=== PATIENT | male | born 1970 | race Caucasian/White ===

== ENCOUNTER 2017-04-07 15:01 | Emergency (ER) | payer OTHER ==
[2017-04-07 15:16] VITALS: BP 134/87
[2017-04-07] MEDS ORDERED: Gelfoam 12-7 ADSORBABL SPONGE* 1 EA SPONGE ONE (15:49)
--- NOTE | 2017-04-07 15:52 | RAD ---
INDICATION: Laceration left second digit with chain saw COMPARISON: None TECHNIQUE: AP, lateral, and oblique views were obtained. FINDINGS: There is soft tissue injury about the distal phalanx. There is no foreign body. No acute bony changes noted, however. There is a bandage in place. IMPRESSION: LACERATION DISTAL PHALANX
--- NOTE | 2017-04-07 16:04 | ED ---
Laceration/Wound HPI - HPI Summary HPI Summary: 47M presents with laceration to left index finger from table saw. the table saw hit the distal end of his finger. He states he has some numbness at the tip of his finger. He has full ROM of his finger. He is right handed. He states that he had a tetanus within the past 5 years. - History of Current Complaint Stated Complaint: FINGER LAC TABLE SAW Time Seen by Provider: 04/07/17 16:03 Pain Intensity: 5 PMH/Surg Hx/FS Hx/Imm Hx Endocrine/Hematology History: Denies: Hx Anticoagulant Therapy Respiratory History: Denies: Hx Asthma Infectious Disease History: No Infectious Disease History: Denies: Traveled Outside the [place] in Last 30 Days - Family History Known Family History: Positive: Hypertension - Social History Alcohol Use: Occasionally Substance Use Type: Reports: Marijuana Smoking Status (MU): Light Every Day Tobacco Smoker Review of Systems Negative: Fever Negative: Chest Pain Negative: Shortness Of Breath Positive: Other - laceration left index All Other Systems Reviewed And Are Negative: Yes Physical Exam Triage Information Reviewed: Yes Vital Signs On Initial Exam: Initial Vitals Temp Pulse Resp BP Pulse Ox 99.2 F 83 16 134/87 98 04/07/17 15:13 04/07/17 15:13 04/07/17 15:13 04/07/17 15:13 04/07/17 15:13 Vital Signs Reviewed: Yes Appearance: Positive: Well-Appearing Skin: Positive: Other - 1cm triangle avulsion through nail not involving nailbed of left index finger Head/Face: Positive: Normal Head/Face Inspection Eyes: Positive: Normal, Conjunctiva Clear Respiratory/Lung Sounds: Positive: Clear to Auscultation, Breath Sounds Present Cardiovascular: Positive: Normal, RRR Musculoskeletal: Positive: Strength/ROM Intact - left index finger Procedures - Laceration/Wound Repair 1 Location: Other - left index finger Description: Irregular Length, Depth and Shape: avulsion of nail and skin of left finger 1cm length by 1/2 cm wide at widest point of triangle Irrigated w/ Saline (ccs): 150 Closure: Skin Adhesive Diagnostics - Vital Signs Vital Signs Temp Pulse Resp BP Pulse Ox 04/07/17 15:37 99.2 F 83 16 134/87 98 04/07/17 15:13 99.2 F 83 16 134/87 98 - Laboratory Lab Statement: Any lab studies that have been ordered have been reviewed, and results considered in the medical decision making process. - Radiology finger Xray Interpretation: Positive (See Comments) - no fracture, soft tissue injury Radiology Interpretation Completed By: Radiologist Laceration Repair Course/Dx - Course Course Of Treatment: 47M presents with avulsion to left index finger that involves the nail and the skin due to table saw. has full ROM of finger. tetanus up to datea. no bone involvment. due to being avulsion placed surgicel on area and applied pressure dressing. patient understands and agrees with plan - Differential Dx Differental Diagnoses: Abrasion, Avulsion, Laceration - Clinical Impression Provider Diagnoses: avulsion of left index finger Discharge - Discharge Plan Condition: Good Disposition: HOME Patient Education Materials: Skin Avulsion (ED) Referrals: Katharine Yadav MD [Primary Care Provider] - Additional Instructions: Keep area in pressure dressing for 48 hours, after 48 hours check for sign of infection leaving absorbable hemostat on wound and rewrap with pressure dressing for another 24 hours Can remove absorbable hemostat in 5 days if able to by soaking it or can leave it Follow up with primary within 10 days Return to ED if develop any signs of infection such as fever, spreading redness , or pus formation or if bleed through pressure dressing or any new or worsening symptoms Images - Images Hands: 1 - triangle avulsion
== END 2017-04-07 16:17 | disposition home or self-care (01) ==
LOC: ED 15:01
DX: S61.211A Laceration without foreign body of left index finger without damage to nail, initial encounter (principal); W45.8XXA Other foreign body or object entering through skin, initial encounter; Y93.9 Activity, unspecified; Y92.9 Unspecified place or not applicable; Y99.9 Unspecified external cause status; F17.210 Nicotine dependence, cigarettes, uncomplicated
CPT/HCPCS: 73140; 99282; A9270-GY

== ENCOUNTER 2017-05-27 12:08 | Emergency (ER) | payer OTHER ==
[2017-05-27 12:56] VITALS: BP 116/83
[2017-05-27] MEDS ORDERED: Lidocaine 2% 10 ML* VIAL INJ ONE (15:10)
--- NOTE | 2017-05-27 15:10 | ED ---
Laceration/Wound HPI - HPI Summary HPI Summary: 47 y/o male presents to the urgent care c/o of laceration of his Right index about 4 hrs ago. 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 Pt reports his tetnus vaccine is upto date. Pain is 3/10, he irrigated wound and bleeding stopped. Pt denies fever, SOB, chest pain, N/V/D. Pt has no other complains. - History of Current Complaint Stated Complaint: FINGER LAC Time Seen by Provider: 05/27/17 14:43 Hx Obtained From: Patient Mechanism of Injury: Sharp/Blunt Trauma Onset/Duration: Sudden Onset, Lasting Hours, Still Present Aggravating: Nothing Alleviating: Compression Timing: Constant Onset Severity: Mild Current Severity: Mild Pain Intensity: 3 Pain Scale Used: 0-10 Numeric Associated Signs & Symptoms: Negative Related Hx: Occupational Injury - Allergy/Home Medications Allergies/Adverse Reactions: Allergies Allergy/AdvReac Type Severity Reaction Status Date / Time No Known Allergies Allergy Verified 05/27/17 12:56 Home Medications: Home Medications Citalopram TAB* [CeleXA TAB*] 40 mg PO DAILY 05/27/17 [History Confirmed ] PMH/Surg Hx/FS Hx/Imm Hx Previously Healthy: Yes Endocrine/Hematology History: Denies: Hx Anticoagulant Therapy Respiratory History: Denies: Hx Asthma Psychiatric History: Reports: Hx Depression - Surgical History Surgery Procedure, Year, and Place: rt hip replacement Infectious Disease History: No Infectious Disease History: Denies: Traveled Outside the [place] in Last 30 Days - Family History Known Family History: Positive: Hypertension, Diabetes - Social History Occupation: Employed Full-time Lives: With Family Alcohol Use: Weekly Substance Use Type: Reports: Marijuana Substance Use Comment - Amount & Last Used: sometimes Smoking Status (MU): Former Smoker Type: Cigarettes Review of Systems Constitutional: Negative Eyes: Negative ENT: Negative Cardiovascular: Negative Respiratory: Negative Gastrointestinal: Negative Genitourinary: Negative Musculoskeletal: Negative Positive: Other - Laceration at the base of the LF index Neurological: Negative Psychological: Normal All Other Systems Reviewed And Are Negative: Yes Physical Exam Triage Information Reviewed: Yes Vital Signs On Initial Exam: Initial Vitals Temp Pulse Resp BP Pulse Ox 97.8 F 44 18 116/83 100 05/27/17 12:52 05/27/17 12:52 05/27/17 12:52 05/27/17 12:52 05/27/17 12:52 Appearance: Positive: Well-Appearing, No Pain Distress, Well-Nourished Skin: Positive: Other - Linear laceration at the base of the RT #2 phalanx, no bleeding, no erythema, or tenderness on palpation. FROM of the finger. w/ positive capillary refill and sensation. Size: 4cm . Head/Face: Positive: Normal Head/Face Inspection Eyes: Positive: Normal, EOMI, NORM, Conjunctiva Clear ENT: Positive: Normal ENT inspection, Hearing grossly normal, Pharynx normal, TMs normal Neck: Positive: Supple Respiratory/Lung Sounds: Positive: Clear to Auscultation, Breath Sounds Present Cardiovascular: Positive: Normal, RRR, Pulses are Symmetrical in both Upper and Lower Extremities, S1, S2 Abdomen Description: Positive: Nontender, No Organomegaly, Soft. Negative: CVA Tenderness (R), CVA Tenderness (L) Bowel Sounds: Positive: Present Musculoskeletal: Positive: Normal, Strength/ROM Intact Neurological: Positive: Normal, Sensory/Motor Intact, Alert, Oriented to Person Place, Time, CN Intact II-III, Reflexes Intact Psychiatric: Positive: Normal Procedures - Laceration/Wound Repair 1 Location: Other - Laceration at the base of the LF #2 phalax Description: Linear Anesthesia: Local, 2.0% Betadine Prep?: Yes Irrigated w/ Saline (ccs): 100 Laceration/Wound Explored: clean Closure: Single Layer Suture Type: Nylon - monofilament 4.0 Number of Sutures: 5 Layer Closure?: No Sterile Dressing Applied?: Yes Diagnostics - Vital Signs Vital Signs Temp Pulse Resp BP Pulse Ox 05/27/17 12:52 97.8 F 44 18 116/83 100 - Laboratory Lab Statement: Any lab studies that have been ordered have been reviewed, and results considered in the medical decision making process. Laceration Repair Course/Dx - Course Course Of Treatment: 47 y/o male presents to the urgent care c/o of laceration of his left index about 4 hrs ago. Pt upto date with Tetanus vaccine. Hx obtained. PE abnormal findings:Skin: Positive: Other - Linear laceration at the base of the RT#2 phalanx, no bleeding, no erythema, or tenderness on palpation. FROM of the finger. w/ positive capillary refill and sensation. Size 4cm. LACERATION PROCEDURE NOTE: . Copious irrigation was done with saline and the wound explored. There was no FB or deep structure injury noted. The procedure was explained and consent obtained, time out was performed. The wound was anesthetized with 4mL of 2% Lidocaine with good anesthesia. Sterile drape and prep were done . There were 5 of sutures placed with 4.0 type of suture. The length of the wound after closure 4cm. No debridement done. Wound was covered with sterile nonadherent dressing. The Pt tolerated the procedure well without adverse effects. Neurovascular intact after procedure. Pt Rx bacitracin topical apply BID x 7 days. Advised to keep wound covered and avoid excess movement with finger. Advised to return for suture removal in 10 days and if redness, pain or selling develops around wound to return to the urgent care for further evaluation and treatment. Pt understood and agreed. Lidocaine 2% ordered. - Differential Dx Differental Diagnoses: Abrasion, Avulsion, Laceration, Puncture Wound - Clinical Impression Provider Diagnoses: Laceration of right index finger w/o foreign body w/o damage to nail - Physician Notifications Discussed Care Of Patient With: Alex Weiss - Dr Weiss agreed with Pt care and procedure. Discharge - Discharge Plan Condition: Stable Disposition: HOME Prescriptions: Bacitracin OINTMENT* 1 applic TOPICAL BID #1 tube Patient Education Materials: Finger Laceration (ED) Referrals: Katharine Yadav MD [Primary Care Provider] - Additional Instructions: Please keep wound covered with dressings avoid moisture, excess movement of finger. Please apply antibiotic ointment as directed. Please return for suture removal in 10 days to the urgent care or your PCP. If signs of redness, pain or swelling around wound please return to the urgent care for further evaluation and treatment.
[2017-05-27] MEDS ORDERED: Lidocaine 2% PF * 5 ML VIAL INJ ONE (15:30)
[2017-05-27] MEDS ORDERED: Lidocaine 1% MPF* 2 ML VIAL ONE (15:30)
== END 2017-05-27 16:54 | disposition home or self-care (01) ==
LOC: UCEAST 12:08
DX: S61.210A Laceration without foreign body of right index finger without damage to nail, initial encounter (principal); F32.9 Major depressive disorder, single episode, unspecified; Z87.891 Personal history of nicotine dependence; W26.8XXA Contact with other sharp object(s), not elsewhere classified, initial encounter; Y92.89 Other specified places as the place of occurrence of the external cause
CPT/HCPCS: 12002; 99212; G0463; J2001

== ENCOUNTER 2018-02-13 16:28 | Emergency (ER) | payer OTHER ==
--- NOTE | 2018-02-13 17:43 | RAD ---
HISTORY: Left calf pain and edema TECHNIQUE: Multiple transverse and longitudinal ultrasound images were obtained of the veins of the left lower extremity using grayscale, color Doppler, and spectral Doppler imaging with and without compression and with augmentation. FINDINGS: VEINS: The common femoral vein, deep femoral vein, femoral vein and popliteal vein are compressible throughout their course, with normal flow on color Doppler imaging and normal response to augmentation on spectral Doppler imaging. SOFT TISSUES: Grossly normal. No large popliteal fossa cyst was identified. IMPRESSION: No sonographic evidence of deep vein thrombosis.
[2018-02-13] MEDS ORDERED: NS 0.9% 1000 ML* 1,000 ML IV ONE (18:47)
[2018-02-13] MEDS ORDERED: Ketorolac INJ* 30 MG/ML 1 ML VIAL IV PUSH ONE (18:47)
--- NOTE | 2018-02-13 18:47 | ED ---
Lower Extremity - HPI Summary HPI Summary: Patient is an otherwise healthy 47-year-old male presenting to the ED with left knee swelling, erythema and erythematous lower extremity 4 days. He denies any known open wound or bite or other infective cause. No history of gout. No history of joint effusions or arthritis. He states he awoke 4 days ago with his anterior knee swelling with a moderate amount of fluctuance and no drainage. Immediately following the area became erythematous and warm extending to the lower extremity, ending at the ankle. There is no erythema up the thigh. He remains ambulatory and endorses worsening pain with movement and standing, although this is marginal. He has not taken anything for relief of symptoms including ibuprofen and Tylenol. He has not been on an antibiotic. He is a nonsmoker. No history of Lyme or tick bites. No history of rheumatoid arthritis or gonorrhea. - History of Current Complaint Chief Complaint: EDExtremityLower Stated Complaint: LT LEG SWELLING Time Seen by Provider: 02/13/18 18:13 Hx Obtained From: Patient Mechanism Of Injury: Unknown Onset of Pain: Immediate Onset/Duration: Days Severity Initially: Moderate Severity Currently: Moderate Pain Intensity: 3 Pain Scale Used: 0-10 Numeric Timing: Constant Character Of Pain: Aching Aggravating Factor(s): Standing, Ambulation Alleviating Factor(s): Rest Able to Bear Weight: No - Risk Factors Gout Risk Factors: Age Over 40, Male DVT Risk Factors: Negative Septic Arthritis Risk Factor: Negative - Allergies/Home Medications Allergies/Adverse Reactions: Allergies Allergy/AdvReac Type Severity Reaction Status Date / Time No Known Allergies Allergy Verified 05/27/17 12:56 PMH/Surg Hx/FS Hx/Imm Hx Previously Healthy: Yes Endocrine/Hematology History: Denies: Hx Anticoagulant Therapy Respiratory History: Denies: Hx Asthma Psychiatric History: Reports: Hx Depression - Surgical History Surgery Procedure, Year, and Place: rt hip replacement - Immunization History Hx Pertussis Vaccination: No Immunizations Up to Date: Unable to Obtain/Confirm Infectious Disease History: No Infectious Disease History: Denies: Traveled Outside the [place] in Last 30 Days - Family History Known Family History: Positive: Hypertension, Diabetes - Social History Occupation: Employed Full-time Lives: With Family Alcohol Use: Weekly Hx Substance Use: Yes Substance Use Type: Reports: Marijuana Substance Use Comment - Amount & Last Used: sometimes Smoking Status (MU): Former Smoker Type: Cigarettes Review of Systems Constitutional: Negative Negative: Fever, Chills, Fatigue, Skin Diaphoresis Negative: Palpitations, Chest Pain Negative: Shortness Of Breath, Cough Negative: Abdominal Pain Positive: no symptoms reported, see HPI Positive: Arthralgia Positive: Other - erythema and warmth to the left knee lower extremity Psychological: Normal All Other Systems Reviewed And Are Negative: Yes Physical Exam Triage Information Reviewed: Yes Vital Signs On Initial Exam: Initial Vitals Temp Pulse Resp BP Pulse Ox 98.7 F 78 20 151/86 97 02/13/18 16:39 02/13/18 16:39 02/13/18 16:39 02/13/18 16:39 02/13/18 16:39 Vital Signs Reviewed: Yes Appearance: Positive: Well-Appearing, Well-Nourished Skin: Positive: Warm, Skin Color Reflects Adequate Perfusion, Other - Left knee effusion and erythema and warmth to the left knee and lower extremity Head/Face: Positive: Normal Head/Face Inspection Eyes: Positive: EOMI, NORM, Conjunctiva Clear Neck: Positive: Supple, No Lymphadenopathy Respiratory/Lung Sounds: Positive: Clear to Auscultation, Breath Sounds Present Cardiovascular: Positive: RRR, Pulses are Symmetrical in both Upper and Lower Extremities Musculoskeletal: Positive: Normal, Strength/ROM Intact Psychiatric: Positive: Normal, Affect/Mood Appropriate Diagnostics - Vital Signs Vital Signs Temp Pulse Resp BP Pulse Ox 02/13/18 16:39 98.7 F 78 20 151/86 97 - Laboratory Result Diagrams: 02/13/18 19:07 02/13/18 19:07 Lab Statement: Any lab studies that have been ordered have been reviewed, and results considered in the medical decision making process. Lower Extremity Course/Dx - Course Course Of Treatment: During the course of treatment, I have evaluated the patient for septic arthritis, versus septic joint, vs joint or knee effusion versus cellulitis. Obtained labs, which included uric acid to assess for gout which was negative. Also, CRP and ESR were slightly elevated showing an inflammatory process. White count negative. Afebrile and other vital signs stable. I am not concerned with a septic joint. X-ray obtained which shows: IMPRESSION: Depicted best on lateral view there is radiographic appearance of. subcutaneous thickening and induration. If the patient's symptoms persist, follow-up imaging is recommended. US shows: IMPRESSION: No sonographic evidence of deep vein thrombosis. Patient is given 600mg clindamycin IV. He is encouraged ibuprofen 600 mg 3 times by mouth daily. Also, I have given him a prescription for Keflex of this this will likely cover the contaminant which is causing the cellulitis. He is to follow up ortho and call tomorrow for an appointment. - Diagnoses Differential Diagnosis/HQI/PQRI: Positive: Gout, Osteomyelitis, Sprain, Tendonitis Provider Diagnoses: Cellulitis, Knee effusion, left Discharge - Sign-Out/Discharge Documenting (check all that apply): Discharge - Discharge Plan Condition: Stable Disposition: HOME Prescriptions: Cephalexin CAP* [Keflex CAP*] 500 mg PO QID #28 cap MDD 4 Patient Education Materials: Cellulitis (ED), Swollen Knee Joint (ED) Referrals: Alex Chin MD [Medical Doctor] - Katharine Yadav MD [Primary Care Provider] - Additional Instructions: Please follow up with ORTHO Call for appt tomorrow If you develop worsening redness, warmth, or UC the redness traveling up or down the leg, return to the ED immediately Keflex 500 mg 4 times daily 7 days Ibuprofen 600 mg 3 times daily Ice to the area for comfort You may continue to ambulate as tolerated - Billing Disposition and Condition Condition: STABLE Disposition: HOME Images - Images Full Body (No Head): 1 - Left knee effusion with surrounding erythema and extension down to the lower leg with erythema and warmth, sparing the distal one third of the lower extremity and foot also sparing the thigh
[2018-02-13 19:19] LABS: ABS Basophils 0.1 10^3/ul (0-0.2); ABS Eosinophils 0.1 10^3/ul (0-0.6); ABS Monocytes 0.7 10^3/ul (0-0.8); ABS Neutrophils 5.4 10^3/ul (1.5-7.7); ABS Nucleated RBC 0 10^3/ul; Hematocrit 42 % (42-52); Hemoglobin 14.8 g/dl (14.0-18.0); Lymphocyte % 23.7 % (25-47); Mean Corpuscular HGB Conc 35 g/dl (31-36); Mean Corpuscular Hemoglobin 32 pg (27-31); Mean Corpuscular Volume 91 fL (80-94); Mean Platelet Volume 8.1 um3 (7.4-10.4); Nucleated Red Blood Cells % 0.1; Platelet Count 190 10^3/ul (150-450); Red Blood Count 4.63 10^6/ul (4.0-5.4); Red Cell Distribution Width 13 % (10.5-15); White Blood Count 8.2 10^3/ul (3.5-10.8)
[2018-02-13 19:37] LABS: EGFR Non-African American 123.9 (>60); Uric Acid 3.9 mg/dL (4.4-7.6)
--- NOTE | 2018-02-13 19:47 | RAD ---
INDICATION: 4 days of left knee pain and swelling COMPARISON: None TECHNIQUE: 4 view radiograph of the left knee. FINDINGS: Depicted best on the lateral view there is the appearance of thickening and induration in the soft tissues overlying the patella and suprapatellar joint space. The visualized bones are well-corticated and properly aligned. The joint spaces are properly maintained. There is no radiographic evidence of joint effusion. There is no acute fracture, dislocation or other focal bony abnormality. IMPRESSION: Depicted best on lateral view there is radiographic appearance of subcutaneous thickening and induration. If the patient's symptoms persist, follow-up imaging is recommended.
[2018-02-13] MEDS ORDERED: Clindamycin 600 MG IVPREMIX(* 600 MG/50 ML SDV IV ONE (20:37)
[2018-02-13 20:57] VITALS: BP 123/69
== END 2018-02-13 20:59 | disposition home or self-care (01) ==
LOC: ED 16:28
DX: L03.116 Cellulitis of left lower limb (principal); M25.462 Effusion, left knee; Z87.891 Personal history of nicotine dependence
CPT/HCPCS: 36415; 80053; 83605; 84550; 85025; 85652; 86140; 86618; 96365; 96375; 99282; J1885

== ENCOUNTER 2018-11-27 09:11 | Inpatient (IN) | payer OTHER ==
--- NOTE | 2018-11-07 07:29 | HP ---
HISTORY AND PHYSICAL: DATE OF ADMISSION/SURGERY: 11/27/18 DATE OF OFFICE VISIT: 11/05/18 SURGEON: Mattie Dupree MD * (DICTATED BY TORI FLANAGAN) PROCEDURE: Left total hip arthroplasty. CHIEF COMPLAINT: Left hip pain. HISTORY OF PRESENT ILLNESS: Mr. Kolb is a 48-year-old gentleman with complaints of left hip pain. He has failed conservative treatment and elected to proceed with a left total hip arthroplasty. PAST MEDICAL HISTORY: Depression and psoriatic arthritis. PAST SURGICAL HISTORY: Right total hip arthroplasty. CURRENT MEDICATIONS: 1. Folic acid. 2. Methotrexate 2.5 mg 5 tabs weekly. 3. Citalopram 10 mg daily. ALLERGIES: No known drug allergies. FAMILY HISTORY: Diabetes and coronary artery disease. SOCIAL HISTORY: He is a 48-year-old gentleman. Lives with his spouse. He does not smoke cigarettes. Does report smoking occasional marijuana and using occasional alcohol. REVIEW OF SYSTEMS: A complete 14-point review of systems was reviewed with the patient. It was all negative or noncontributory. He denies history of DVT, PE , hepatitis, HIV or anesthesia problems. PHYSICAL EXAMINATION GENERAL: He is well developed, well nourished, in no acute distress. VITAL SIGNS: He stands 6 feet tall, weighs 188 pounds. His blood pressure is 132/84, his heart rate is 72. HEENT: Normocephalic, atraumatic. NECK: Supple. No palpable lymph nodes. PULMONARY: The lungs are clear to auscultation bilaterally. CARDIO: Regular rate and rhythm. Strong S1, S2. ABDOMEN: Soft, nontender, and nondistended. MUSCULOSKELETAL: Left lower extremity: The skin is intact. There are no open wounds or abrasions. He walks with an antalgic type gait favoring his left hip. He has decreased internal and external rotation of the left hip. He has 2 + dorsalis pedis pulse, intact sensation and his lower extremity muscle group strengths are intact at 5/5. NEUROLOGICAL: He is alert and oriented x3. ASSESSMENT AND PLAN: Mr. Kolb is 48-year-old gentleman with end-stage osteoarthritis of the left hip. He has failed conservative treatment and elected to proceed with a left total hip arthroplasty. The surgery is scheduled for 11/27/[address] Dupree discussed the risks and benefits of the surgery at today's visit and all of his questions were answered. He will follow up with Dr. Dupree 2 weeks after the surgery. TORI FLANAGAN [id number]/CPS #: [id number]
[~2018-11-27 09:11] MED LIST: Buffered Lidocaine 0.9% SYRIN* 5 ML/SYR SYRINGE INTRADERM ONE; Dexamethasone IV* 4 MG/ML 1 ML (4 MG) IV SLOW PU ONE; Famotidine IV* 10 MG/ML 2 ML (20 mg) IV ONE; Lactated Ringers 1000 ML Bag* 1,000 ML IV SCH
--- OUTSIDE RECORDS SUMMARY | 2018-11-27 09:16 | XMS REPORT | Continuity of Care Document ---
:1970 External Reference #:[id number] Author Name Amanda Purdy Care Team Providers Name Role Phone Kati Cheng, SARAH Primary Care Physician Unavailable Payers Type Date Identification Numbers Payment Provider Subscriber Effective: Policy Number: [id number] [place] Lexa Kolb 2018 Medicaid PayID: [id number] [address] [place] [id number] Expires: 2018 Policy Number: [employer] Lexa Kolb [id number] PayID: [id number] [address] [address] [place] [address] Advance Directives Description No Information Available Problems Date Description Provider Status Onset: 02/28/2018 Localized, secondary osteoarthritis of Mattie Dupree M.D. Active the pelvic region and thigh Onset: 10/30/2018 Lateral epicondylitis Nuha Walker MD Active Onset: 09/16/2018 Disorder of shoulder Nuha Walker MD Active Onset: 09/12/2018 Full thickness rotator cuff tear Mattie Dupree M.D. Active Onset: 09/12/2018 Localized, primary osteoarthritis of the Mattie Dupree M.D. Active pelvic region and thigh Family History Date Family Member(s) Problem(s) Comments General No contact with parents for past 20+ years Onset: (age 73 Years) Father Coronary Artery Disease (CAD) Father Stent placement Father Diabetes Onset: (02/16/2016) (age Mother Alive And Well 72 Years) Siblings None Social History Type Date Description Comments Sex Unknown Marital Status 02/16/2016 second marriage, 2 children by current 1.5 and 3.5 years, 2 adult children by prior marriage. 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 by mouth Methotrexate 06/16/ Active Tablets 2.5mg 30tabs take 5 L40.50 2017 capsules/ta Ponce, blets by M.D. mouth once weekly Citalopram / Active Tablets 10mg 1 by mouth Unknown Hydrobromide 0000 every day Ciclopirox / Active Solution 8% Apply One Unknown 0000 Time Daily (Preferably AT Bedtime) To Affected Area(S) Of Nails With The Applicator [place] Provided Ciclopirox 07/30/ Hx Solution 8% 6.600m Apply once B37.2 Xander 2017 - l daily Ponce, (preferably M.D. 2018 at bedtime) to all affected nails with the applicator brush provided Jublia 07/29/ Hx Solution 10% 8ml Apply to B37.2 Xander 2017 - nail daily Ponce, 07/30/ as directed M.D. 2017 Amoxicillin/Cl 02/28/ Hx Tablets 875-125mg 10tabs 1 pill by M71.162 Mattie avulanate 2017 - mouth twice Joon, Potassium 04/17/ daily M.D. 2017 Sulfamethoxazo 01/08/ Hx Tablets 800-160mg 20tabs 1 by mouth Alexei schmidt/Trimethopri 2017 twice a day aurora Buckley M.D. Oxycodone-Acet 01/07/ Hx Tablets 5-325mg 12tabs 1 tab by Adriana aminophen 2017 mouth every B. 4- 6 hours [place], as needed POULTRY RAISER Celecoxib 12/20/ Hx Capsules 200mg 30caps 1 capsule Isabella Cochran 2017 - po bid MD Jorge Luis 2016 Oxycodone-Acet 12/20/ Hx Tablets 5-325mg 20tabs 1--2 tab by Isabella Cochran aminophen 2017 mouth every MD Jorge Luis 4- 6 hours as needed for pain Vitamin C 00// Hx prn Unknown 0000 Sulfamethoxazo / Hx Tablets 800-160mg Take 1 Unknown le/Trimethopri 0000 - Tablet By aurora CANTRELL 03/11/ Mouth Two 2018 Times Daily For 7 Days Medications Administered in Office Medication Date Status Form Strength Qnty SIG Indications Ordering Provider Triamcinolone 10/30/ Administered Injection Zaneb (Kenalog) 2017 MD Aaron Depomedrol 40MG 09/12/ Administered Injection Mattie 2017 Surendra Dupree Immunizations CPT Code Status Date Vaccine Reaction Lot # [id number] Given 09/29/2018 Pneumococcal Conjugate [id number] Vaccine 13 Valent For Intramuscular Use 74235 Given 07/29/2018 Influenza Virus Vaccine, Patient tolerated [id number] Quadrivalent, Split, injection with no Preservative Free immediate adverse effect Vital Signs Date Vital Result Comment 11/05/2018 11:33am Height 72 inches 6'0" Weight 188.00 lb Heart Rate 75 /min BP Systolic 132 mmHg BP Diastolic 84 mmHg Respiratory Rate 16 /min Pain Level 2 BMI (Body Mass Index) 25.5 kg/m2 10/30/2018 11:32am Height 72 inches 6'0" Heart Rate 72 /min BP Systolic Sitting 142 mmHg BP Diastolic Sitting 102 mmHg Pain Level 8 Left shoulder 10/14/2018 12:04pm Height 72 inches 6'0" Weight 196.00 lb Heart Rate 64 /min BP Systolic Sitting 138 mmHg LA,reg BP Diastolic Sitting 84 mmHg LA,reg BMI (Body Mass Index) 26.6 kg/m2 Ejection Fraction 55% stress echo Ref 09/29/2018 10:51am Height 72 inches 6'0" Weight 192.38 lb Heart Rate 68 /min BP Systolic Sitting 128 mmHg BP Diastolic Sitting 80 mmHg Pain Level 3 O2 % BldC Oximetry 97 % BMI (Body Mass Index) 26.1 kg/m2 09/16/2018 1:00pm Height 72 inches 6'0" Weight 185.00 lb Heart Rate 63 /min BP Systolic 139 mmHg BP Diastolic 86 mmHg Respiratory Rate 16 /min Pain Level 6 BMI (Body Mass Index) 25.1 kg/m2 09/12/2018 9:12am Height 72 inches 6'0" Weight 190.00 lb BP Systolic 129 mmHg BP Diastolic 67 mmHg Respiratory Rate 16 /min Pain Level 8 BMI (Body Mass Index) 25.8 kg/m2 07/29/2018 8:31am Height 72 inches 6'0" Weight 189.12 lb Heart Rate 63 /min BP Systolic Sitting 146 mmHg BP Diastolic Sitting 86 mmHg Pain Level 0 O2 % BldC Oximetry 98 % BMI (Body Mass Index) 25.6 kg/m2 06/16/2018 9:09am Height 72 inches 6'0" Weight 188.38 lb Heart Rate 66 /min BP Systolic Sitting 148 mmHg BP Diastolic Sitting 86 mmHg Respiratory Rate 14 /min Pain Level 6 BMI (Body Mass Index) 25.5 kg/m2 04/18/2018 2:12pm Height 72 inches 6'0" Heart Rate 59 /min BP Systolic 130 mmHg BP Diastolic 78 mmHg Respiratory Rate 16 /min Body Temperature 97.6 F Pain Level 7 03/12/2018 11:45am Height 72 inches 6'0" Weight 190.00 lb BP Systolic 140 mmHg BP Diastolic 90 mmHg Body Temperature 97.6 F BMI (Body Mass Index) 25.8 kg/m2 03/05/2018 9:02am Height 72 inches 6'0" Weight 185.00 lb Heart Rate 60 /min BP Systolic 110 mmHg BP Diastolic 64 mmHg Body Temperature 96.1 F BMI (Body Mass Index) 25.1 kg/m2 02/28/2018 11:22am Height 72 inches 6'0" Weight 190.00 lb Heart Rate 52 /min BP Systolic 104 mmHg BP Diastolic 70 mmHg Respiratory Rate 16 /min Body Temperature 97.9 F Pain Level 4 BMI (Body Mass Index) 25.8 kg/m2 03/14/2017 12:39pm Weight 187.00 lb with boots Heart Rate 62 /min BP Systolic Sitting 122 mmHg LA reg cuff BP Diastolic Sitting 82 mmHg LA reg cuff Ejection Fraction 55% - 60% echo 02/20/16 01/18/2017 2:52pm Heart Rate 54 /min BP Systolic 98 mmHg BP Diastolic 60 mmHg Respiratory Rate 16 /min Body Temperature 97.5 F 01/08/2017 9:53am Heart Rate 78 /min BP Systolic 116 mmHg BP Diastolic 70 mmHg Respiratory Rate 18 /min Body Temperature 99.0 F 12/20/2016 11:18am Heart Rate 60 /min Respiratory Rate 16 /min Body Temperature 97.6 F 12/17/2016 9:19am Heart Rate 74 /min Respiratory Rate 16 /min Body Temperature 97.5 F 12/07/2016 10:14am Heart Rate 72 /min BP Systolic 118 mmHg BP Diastolic 70 mmHg Respiratory Rate 18 /min Body Temperature 97.5 F 10/16/2016 10:57am Height 73 inches 6'1" Weight 185.00 lb Heart Rate 72 /min BP Systolic 92 mmHg BP Diastolic 60 mmHg Respiratory Rate 16 /min Body Temperature 98.3 F BMI (Body Mass Index) 24.4 kg/m2 02/16/2016 10:18am Height 72 inches 6'0" Weight 192.25 lb w/boots Heart Rate 58 /min BP Systolic Sitting 112 mmHg LA reg cuff BP Diastolic Sitting 68 mmHg LA reg cuff BMI (Body Mass Index) 26.1 kg/m2 Results Test Date Facility Test Result H/L Range Note Laboratory test 10/03/2018 [facility] Erythrocyte Sed 8 mm/Hr N 0-20 [address] [place] [address] [phone] C Reactive Protein 2.86 mg/L N <8.01 2 CBC Auto Diff 10/03/2018 [facility] White Blood 5.6 10^3/uL N 3.5-10.[address] Count [place], [place] [id number] [phone] Red Blood Count 4.51 10^6/uL N 4.00-5.40 Hemoglobin 14.8 g/dL N 14.0-18.0 Hematocrit 43 % N 42-52 Mean Corpuscular Volume 95 fL High 80-94 Mean Corpuscular Hemoglobin 33 pg High 27-31 Mean Corpuscular HGB Conc 35 g/dL N 31-36 Red Cell Distribution Width 13 % N 10.5-15 Platelet Count 193 10^3/uL N 150-450 Mean Platelet Volume 8.2 fL N 7.4-10.4 Abs Neutrophils 3.7 10^3/uL N 1.5-7.7 Abs Lymphocytes 1.0 10^3/uL N 1.0-4.8 Abs Monocytes 0.7 10^3/uL N 0-0.8 Abs Eosinophils 0.1 10^3/uL N 0-0.6 Abs Basophils 0.1 10^3/uL N 0-0.2 Abs Nucleated RBC 0 10^3/uL Granulocyte % 67.2 % N 38-83 Lymphocyte % 17.9 % Low 25-47 Monocyte % 12.3 % High 0-7 Eosinophil % 1.5 % N 0-6 Basophil % 1.1 % N 0-2 Nucleated Red Blood Cells % 0 Comp Metabolic Panel 10/03/2018 [facility] Sodium 137 mmol/L N 135-[address] [place] [address] [phone] Potassium 4.3 mmol/L N 3.5-5.0 Chloride 102 mmol/L N 101-111 Co2 Carbon Dioxide 28 mmol/L N 22-32 Anion Gap 7 mmol/L N 2-11 Glucose 111 mg/dL High 70-100 Blood Urea Nitrogen 14 mg/dL N 6-24 Creatinine 0.70 mg/dL N 0.67-1.17 BUN/Creatinine Ratio 20.0 N 8-20 Calcium 9.4 mg/dL N 8.6-10.3 Total Protein 6.5 g/dL N 6.4-8.9 Albumin 4.1 g/dL N 3.2-5.2 Globulin 2.4 g/dL N 2-4 Albumin/Globulin Ratio 1.7 N 1-3 Total Bilirubin 0.50 mg/dL N 0.2-1.0 Alkaline Phosphatase 45 U/L N 34-104 Alt 24 U/L N 7-52 Ast 20 U/L N 13-39 Egfr Non- 119.4 >60 Egfr 144.4 >60 3 Laboratory test 06/16/2018 [facility] Erythrocyte Sed 7 mm/Hr N 0-[address] [place] [address] [phone] C Reactive Protein 1.51 mg/L N <8.01 CBC Auto Diff 06/16/2018 [facility] White Blood 4.9 10^3/uL N 3.5-10.[address] [place] [address] [phone] Red Blood Count 4.75 10^6/uL N 4.00-5.40 Hemoglobin 15.4 g/dL N 14.0-18.0 Hematocrit 43 % N 42-52 Mean Corpuscular Volume 91 fL N 80-94 Mean Corpuscular Hemoglobin 32 pg High 27-31 Mean Corpuscular HGB Conc 36 g/dL N 31-36 Red Cell Distribution Width 14 % N 10.5-15 Platelet Count 190 10^3/uL N 150-450 Mean Platelet Volume 8.6 um3 N 7.4-10.4 Abs Neutrophils 2.8 10^3/uL N 1.5-7.7 Abs Lymphocytes 1.5 10^3/uL N 1.0-4.8 Abs Monocytes 0.4 10^3/uL N 0-0.8 Abs Eosinophils 0.2 10^3/uL N 0-0.6 Abs Basophils 0 10^3/uL N 0-0.2 Abs Nucleated RBC 0 10^3/uL Granulocyte % 56.7 % N 38-83 Lymphocyte % 30.3 % N 25-47 Monocyte % 8.9 % High 0-7 Eosinophil % 3.2 % N 0-6 Basophil % 0.9 % N 0-2 Nucleated Red Blood Cells % 0 Comp Metabolic Panel 06/16/2018 [facility] Sodium 136 mmol/L N 135-[address] [place] [address] [phone] Potassium 4.2 mmol/L N 3.5-5.0 Chloride 103 mmol/L N 101-111 Co2 Carbon Dioxide 26 mmol/L N 22-32 Anion Gap 7 mmol/L N 2-11 Glucose 101 mg/dL High 70-100 Blood Urea Nitrogen 13 mg/dL N 6-24 Creatinine 0.75 mg/dL N 0.67-1.17 BUN/Creatinine Ratio 17.3 N 8-20 Calcium 9.5 mg/dL N 8.6-10.3 Total Protein 7.0 g/dL N 6.4-8.9 Albumin 4.3 g/dL N 3.2-5.2 Globulin 2.7 g/dL N 2-4 Albumin/Globulin Ratio 1.6 N 1-3 Total Bilirubin 0.60 mg/dL N 0.2-1.0 Alkaline Phosphatase 36 U/L N 34-104 Alt 23 U/L N 7-52 Ast 21 U/L N 13-39 Egfr Non- 110.2 >60 Egfr 133.4 >60 4 Connective Tissue 06/16/2018 [facility] Anti-Nuclear Antibody 0.2 U [address] [place] [address] [phone] Cyclic Citrullinated Peptide <15.6 U 6 Interpretation See Comment 7 Laboratory test 06/16/2018 [facility] Fungus Culture SEE RESULT [address] [place] [address] [phone] Laboratory test 06/16/2018 [facility] Fungus Culture SEE RESULT [address] Skin [place]OW [place], [place] [id number] [phone] Hla B27 06/16/2018 [facility] Hla B27 Negative [address] [place], [place] [address] [phone] Hla B27 Interp See Comment 11 Semen Analysis Post 03/20/2017 [facility] Post Vasectomy Yes N Vasectomy [address] [place] [address] [phone] Semen Volume 2.5 mL N 1.5-5.0 Post Vasectomy Sperm Presence Absent N Absent Laboratory test 12/07/2016 [facility] Surgical SEE RESULT [address] [place] [address] [phone] Lipid Panel - 04/18/2016 [facility] Creatine 100 U/L N 10-223 [address] Kinase(CK) [place] [address] [phone] Comp Metabolic 04/18/2016 [facility] Sodium 138 mmol/L N 133- [address] [place] [address] [phone] Potassium 4.6 mmol/L N 3.5-5.0 Chloride 103 mmol/L N 101-111 Co2 Carbon Dioxide 32 mmol/L N 22-32 Anion Gap 3 mmol/L N 2-11 Glucose 105 mg/dL High 70-100 Blood Urea Nitrogen 12 mg/dL N 6-24 Creatinine 0.89 mg/dL N 0.67-1.17 BUN/Creatinine Ratio 13.5 N 8-20 Calcium 9.5 mg/dL N 8.6-10.3 Total Protein 6.6 g/dL N 6.4-8.9 Albumin 4.1 g/dL N 3.2-5.2 Globulin 2.5 g/dL N 2-4 Albumin/Globulin Ratio 1.6 N 1-3 Total Bilirubin 0.80 mg/dL N 0.2-1.0 Alkaline Phosphatase 49 U/L N 34-104 Alt 16 U/L N 7-52 Ast 17 U/L N 13-39 Egfr Non- 91.2 N >60 Egfr 117.3 N >60 14 Lipid Profile 04/18/2016 [facility] Triglycerides 164 mg/dL N 15 (Trig/Chol/HDL) [address] [place] [address] [phone] Cholesterol 207 mg/dL N 16 HDL Cholesterol 46.1 mg/dL N 17 LDL Cholesterol 128 mg/dL N 18 Laboratory test 04/18/2016 [facility] TSH (Thyroid 0.65 ?IU/mL N 0.34-5.60 [address] Stim [place]) [place] [address] [phone] CBC Auto Diff 04/18/2016 [facility] White Blood 7.1 10^3/uL N 3.5-10.[address] [place] [address] [phone] Red Blood Count 5.11 10^6/uL N 4.0-5.4 Hemoglobin 15.0 g/dL N 14.0-18.0 Hematocrit 45 % N 42-52 Mean Corpuscular Volume 89 fL N 80-94 Mean Corpuscular Hemoglobin 29 pg N 27-31 Mean Corpuscular HGB Conc 33 g/dL N 31-36 Red Cell Distribution Width 13 % N 10.5-15 Platelet Count 213 10^3/uL N 150-450 Mean Platelet Volume 9 um3 N 7.4-10.4 Abs Neutrophils 4.6 10^3/uL N 1.5-7.7 Abs Lymphocytes 1.7 10^3/uL N 1.0-4.8 Abs Monocytes 0.6 10^3/uL N 0-0.8 Abs Eosinophils 0.1 10^3/uL N 0-0.6 Abs Basophils 0.1 10^3/uL N 0-0.2 Abs Nucleated RBC 0.02 10^3/uL N Granulocyte % 65.0 % N 38-83 Lymphocyte % 24.4 % Low 25-47 Monocyte % 8.3 % N 1-9 Eosinophil % 1.5 % N 0-6 Basophil % 0.8 % N 0-2 Nucleated Red Blood Cells % 0.3 N Laboratory test 04/18/2016 [facility] Magnesium 2.1 mg/dL N 1.9-2.7 [address] [place] [address] [phone] Vitamin B12 And 04/18/2016 [facility] Vitamin B12 318 pg/mL N 180-914 21 Folate Serum [address] [place] [address] [phone] Folic Acid (Folate) 5.49 ng/mL N >3.99 22 1 Please check labs this week 2 Please check labs this week 3 Because ethnic data is not always readily available, this report includes an eGFR for both -Americans and non- Americans. The National Kidney Disease Education Program (NKDEP) does not endorse the use of the MDRD equation for patients that are not between the ages of 18 and 70, are , have extremes of body size, muscle mass, or nutritional status, or are non- or non-. According to the National Kidney Foundation, irrespective of diagnosis, the stage of the disease is based on the level of kidney function: Stage Description GFR(mL/min/1.73 m(2)) 1 Kidney damage with normal or decreased GFR 90 2 Kidney damage with mild decrease in GFR 60-89 3 Moderate decrease in GFR 30-59 4 Severe decrease in GFR 15-29 5 Kidney failure <15 (or dialysis) 4 Because ethnic data is not always readily available, this report includes an eGFR for both -Americans and non- Americans. The National Kidney Disease Education Program (NKDEP) does not endorse the use of the MDRD equation for patients that are not between the ages of 18 and 70, are , have extremes of body size, muscle mass, or nutritional status, or are non- or non-. According to the National Kidney Foundation, irrespective of diagnosis, the stage of the disease is based on the level of kidney function: Stage Description GFR(mL/min/1.73 m(2)) 1 Kidney damage with normal or decreased GFR 90 2 Kidney damage with mild decrease in GFR 60-89 3 Moderate decrease in GFR 30-59 4 Severe decrease in GFR 15-29 5 Kidney failure <15 (or dialysis) 5 REFERENCE VALUE <=1.0 (Negative) 6 REFERENCE VALUE <20.0 (Negative) 7 Tests for antibodies to dsDNA and DAVION antigens are not performed automatically unless the ORCÍO result is > or= 3.0 U. Studies performed at [facility] indicate that positive ROCÍO results <3.0 U are rarely accompanied by positive second order tests. Test Performed by: [facility] - [address] [address] 8 SEE RESULT BELOW Name: LEXA KOLB : [address]: Xander Serra MD Acct: [id number] Unit: [id number] AGE: 48 Location: [facility] Re06/16/18 SEX: M Status: REG REF SPEC: [id number] YARIEL: 06/16/18-[address] [facility] [address]: Xander Serra MD REQ: [id number] RECD: 06/16/180066 STATUS: RES _ SOURCE: TOENAIL SPDESC: ORDERED: Fungal Cult Darnell COMMENTS: [id number] Please check today Procedure Result Reported Site Fungal Cult Skin/Hair/Nails Preliminary 07/07/18- 131 ML Organism 1 TRICHOSPORON MUCOIDES * ML - Main Lab . END OF REPORT DEPARTMENT OF PATHOLOGY, [address] [place] [address] Gabriel Drew M.D. Director [facility] # [id number] 9 SEE RESULT BELOW Name: LEXA KOLB : [address]: Xander Serra MD Acct: [id number] Unit: [id number] AGE: 48 Location: [facility] Re06/16/18 SEX: M Status: REG REF SPEC: [id number] YARIEL: 06/16/18-[address]: Xander Serra MD REQ: [id number] RECD: 06/16/18 STATUS: COMP _ SOURCE: TOENAIL SPDESC: ORDERED: Fungal Cult Darnell COMMENTS: [id number] Please check today Procedure Result Reported Site Fungal Cult Skin/Hair/Nails Final 07/14/18- 1100 ML Organism 1 TRICHOSPORON MUCOIDES * ML - Main Lab . END OF REPORT DEPARTMENT OF PATHOLOGY, [address] [place] [address] Gabriel Drew M.D. Director [facility] # [id number] 10 REFERENCE VALUE Not Applicable 11 RESULT: HLA-B27 antigen was not detected. ADDITIONAL INFORMATION Method: Flow Cytometry Performing Laboratory [facility]# [id number] Test Performed by: [facility] [place] [address] 12 SEE RESULT BELOW Name: LEXA KOLB : [address]: Alexei Buckley MD Acct: [id number] Unit: [id number] AGE: 46 Location: [facility] Re12/07/16 SEX: M Status: REG REF SPEC: [id number] YARIEL: 12/07/16-[address] [facility] [address]: Alexei Buckley MD REQ: [id number] RECD: 12/07/168533 STATUS: SOUT _ ORDERED: LEVEL II/2 COMMENTS: [id number] FINAL DIAGNOSIS 1. Vas deferens, right, vasectomy: -- Segments of vas deferens, complete cross sections are seen. 2. Vas deferens, left, vasectomy: -- Segments of vas deferens, complete cross sections are seen. PRE-OPERATIVE DIAGNOSIS Requests sterilization GROSS DESCRIPTION 1. The specimen is received in formalin labeled, Right Vas Deferens, and consists of a 2.8 x 0.3 cm espinoza-white tubular soft tissue fragment. Sectioning reveals a pinpoint lumen, financial service representative sections are submitted in one cassette. 2. The specimen is received in formalin labeled, Left Vas Deferens, and consists of a 3.0 x 0.3 cm espinoza-pink tubular soft tissue fragment. Sectioning reveals a pinpoint lumen, financial service representative sections are submitted in one cassette. Signed (signature on file) Gabriel Drew MD 1326 END OF REPORT * ML=Testing performed at Main Lab DEPARTMENT OF PATHOLOGY, [address] [place] [address] Gabriel Drew M.D. Director [facility] # [id number] Because ethnic data is not always readily available, this report includes an eGFR for both -Americans and non- Americans. The National Kidney Disease Education Program (NKDEP) does not endorse the use of the MDRD equation for patients that are not between the ages of 18 and 70, are , have extremes of body size, muscle mass, or nutritional status, or are non- or non-. According to the National Kidney Foundation, irrespective of diagnosis, the stage of the disease is based on the level of kidney function: Stage Description GFR(mL/min/1.73 m(2)) 1 Kidney damage with normal or decreased GFR 90 2 Kidney damage with mild decrease in GFR 60-89 3 Moderate decrease in GFR 30-59 4 Severe decrease in GFR 15-29 5 Kidney failure <15 (or dialysis) 15 Desirable <150 Borderline high 150-199 High 200-499 Very High >500 16 Desirable <200 Borderline high 200-239 High >239 17 Low <40 Desirable: 40-60 High: >60 18 Desirable: <100 mg/dL Near Optimal: 100-129 mg/dL Borderline High: 130-159 mg/dL High: 160-189 mg/dL Very High: >189 mg/dL 19 FASTING 20 FASTING 21 Normal Range 180 to 914 Indeterminate Range 145 to 180 Deficient Range <145 22 FASTING Procedures Date Code Description Status 11/05/2018 10669 Holter Monitor Review (24 hr)dr review & interp only Completed 11/05/2018 37866 ECG Monitor/Recording W/Visual Superimposition Scanning Completed 11/04/2018 05108 ECHO Transthoracic, Real-Time 2D With Doppler And Color Completed Flow 10/30/2018 31203 Inject/Drain Joint/Bursa Major W/O US Completed 10/14/2018 69980 EKG Tracing & Interpretation Completed 09/12/2018 70901 Inject/Drain Joint/Bursa Major W/O US Completed 03/14/2017 13837 EKG Tracing & Interpretation Completed 12/07/2016 34803 Vasectomy Including Post-Op Semen Exam Completed 04/18/2016 57746 ECHO Stress Test Incl Perf Contiuous ekg Monitoring W/Phys Completed Superv 03/08/2016 77653 Holter Monitor Review (24 hr)dr review & interp only Completed 03/07/2016 32378 ECG Monitor/Recording W/Visual Superimposition Scanning Completed 2016 48708 ECHO Transthoracic, Real-Time 2D With Doppler And Color Completed Flow 02/16/2016 36993 EKG Tracing & Interpretation Completed 12/01/2007 54809 Holter Monitor Interpretation Completed 12/01/2007 86355 Holter Monitor Interpretation Completed Encounters Type Date Location Provider Dx Diagnosis Office Visit 10/14/2018 [facility] Jitendra Da Silva49.3 Ventricular premature 11:40a Of [place] [facility] Surendra Pink depolarization R00.2 Palpitations Z01.810 Encounter for preprocedural cardiovascular examination Office Visit 09/29/2018 Rheumatology Xander L40.50 Arthropathic 10:40a Services Of [place] Serra M.D. psoriasis, unspecified Z79.899 Other custodial (current) drug therapy M25.552 Pain in left hip M75.42 Impingement syndrome of left shoulder Z23 Encounter for immunization Office Visit 09/16/2018 1:00p Orthopedic Nuha Walker, M75.121 Complete Services Of rotatr-cuff C.M.A. tear/ruptr of r shoulder, not trauma M75.42 Impingement syndrome of left shoulder Office Visit 09/12/2018 9:00a Orthopedic Services Mattie Dupree M25.552 Pain in left Of C.M.A. M.D. hip M16.12 Unilateral primary osteoarthritis, left hip M25.511 Pain in right shoulder M75.121 Complete rotatr-cuff tear/ruptr of r shoulder, not trauma Office Visit 07/29/2018 Rheumatology Xander L40.50 Arthropathic 8:40a Services Of [place] Serra M.D. psoriasis, unspecified M25.511 Pain in right shoulder Z79.899 Other custodial (current) drug therapy L40.0 Psoriasis vulgaris Z23 Encounter for immunization Office Visit 06/16/2018 Rheumatology Xander L40.50 Arthropathic 9:00a Services Of [place] Serra M.D. psoriasis, unspecified M54.5 Low back pain M25.511 Pain in right shoulder L60.3 Nail dystrophy Office Visit 04/18/2018 2:15p Orthopedic Brandon S63.650A Sprain of MCP Services Of MD David joint of right C.M.A. index finger, init Office Visit 03/12/2018 11:15a Orthopedic Mattie Dupree M25.562 Pain in left Services Of Surendra knee C.M.AMildred M71.162 Other infective bursitis, left knee Office Visit 03/06/2018 9:40a [facility] Dermatology Redd Gillis MD L40.0 Psoriasis vulgaris L82.1 Other seborrheic keratosis Office Visit 03/05/2018 9:00a Orthopedic Yari Wolfe M71.162 Other infective Services Of TORI Luo bursitis, left C.M.A. knee M25.562 Pain in left knee Office Visit 02/28/2018 10:30a Orthopedic Mattie Dupree M71.162 Other infective Services Of Surendra bursitis, left C.M.A. knee M25.562 Pain in left knee M25.552 Pain in left hip M16.32 Unilateral osteoarth resulting from hip dysplasia, left hip Office Visit 03/14/2017 1:00p [facility] Jitendra Parry R00.2 Palpitations Surendra Pink R94.31 Abnormal electrocardiogram [ECG] [EKG] Office Visit 10/16/2016 Surgical LeeMildred Z30.09 Encounter for oth 11:00a Associates Nba Buckley M.D. general coun and [facility] advice on contraception Office Visit 02/16/2016 [facility] Jitendra Parry R00.2 Palpitations 10:00a Cardiology Surendra Pink R07.9 Chest pain, unspecified R94.31 Abnormal electrocardiogram [ECG] [EKG] Plan of Treatment Future Appointment(s):12/08/2018 9:45 am - Mattie Dupree M.D. at [facility]11/06/2018 8:30 am - Nurse Visit cc at [facility]01/12 11:00 am - Xander Serra M.D. at [facility]11/27/2018 12:30 pm - Mattie Dupree M.D. at [facility]
--- OUTSIDE RECORDS SUMMARY | 2018-11-27 09:16 | XMS REPORT | Continuity of Care Document ---
:1970 External Reference #:[id number] Author Name Ricardo Batista Care Team Providers Name Role Phone Kati Cheng, SARAH Primary Care Physician Unavailable Payers Type Date Identification Numbers Payment Provider Subscriber Effective: Policy Number: [id number] [place] Lexa Kolb 2018 Medicaid PayID: [id number] [address] [address] [place] [address] Expires: 2018 Policy Number: [employer]ential Lexa Kolb [id number] PayID: [id number] [address] [address] [place] [address] Advance Directives Description No Information Available Problems [...] marriage. 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 at bedtime) to all affected nails with the applicator brush provided Folic Acid 06/16/ Active Tablets 1mg 90tabs take one L40.50 2017 capsule/tab Ponce, let daily M.D. by mouth Methotrexate 06/16/ Active Tablets 2.5mg 30tabs take 5 L40.50 2017 capsules/ta Ponce, blets by M.D. mouth once weekly Citalopram / Active Tablets 10mg 1 by mouth Unknown Hydrobromide 0000 every day Jublia 07/29/ Hx Solution 10% 8ml Apply to B37.2 Xander 2017 - nail daily Ponce, 07/30/ as directed M.D. 2017 Amoxicillin/Cl 02/28/ Hx Tablets 875-125mg 10tabs 1 pill by M71.162 Mattie avulanate 2017 - mouth twice Joon, Potassium 04/17/ daily M.D. 2018 Sulfamethoxazo 01/08/ Hx Tablets 800-160mg 20tabs 1 by mouth Alexei schmidt/Trimethopri 2017 twice a day aurora Buckley M.D. Oxycodone-Acet 01/07/ Hx Tablets 5-325mg 12tabs 1 tab by Adriana aminoroel 2017 mouth every B. 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 Immunizations CPT Code Status Date Vaccine Reaction Lot # [id number] Given 09/29/2018 Pneumococcal Conjugate [id number] Vaccine 13 Valent For Intramuscular Use 27083 Given 07/29/2018 Influenza Virus Vaccine, Patient tolerated [id number] Quadrivalent, Split, injection with no Preservative Free immediate adverse effect Vital Signs Date Vital Result Comment 10/30/2018 11:32am Height 72 inches 6'0" Heart [...] Result H/L Range Note Laboratory test 10/03/2018 [facility] Erythrocyte Sed 8 mm/Hr N 0-20 [address] [place] [address] [phone] C Reactive Protein 2.86 mg/L N <8.01 2 CBC Auto Diff 10/03/2018 [facility] White Blood 5.6 10^3/uL N 3.5-10.[address] [place] [address] [phone] Red Blood Count 4.51 10^6/uL N 4.00-5.40 [...] Cells % 0 Comp Metabolic Panel 10/03/2018 [facility] Sodium 137 mmol/L N 135-[address] [place] [address] [phone] Potassium 4.3 mmol/L N 3.5-5.0 Chloride 102 [...] Non- 119.4 >60 Egfr 144.4 >60 3 Hla B27 06/16/2018 [facility] Hla B27 Negative [address] [place] [address] [phone] Hla B27 Interp See Comment 5 Laboratory test 06/16/2018 [facility] Erythrocyte Sed 7 mm/Hr N 0-[address] [place] [address] [phone] C Reactive Protein 1.51 mg/L N <8.01 CBC Auto Diff 06/16/2018 [facility] White Blood 4.9 10^3/uL N 3.5-10.[address] [place] [address] [phone] Red Blood Count 4.75 10^6/uL N 4.00-5.40 [...] Cells % 0 Comp Metabolic Panel 06/16/2018 [facility] Sodium 136 mmol/L N 135-[address] [place] [address] [phone] Potassium 4.2 mmol/L N 3.5-5.0 Chloride 103 [...] Egfr Non- 110.2 >60 Egfr 133.4 >60 6 Laboratory test 06/16/2018 [facility] Fungus Culture SEE RESULT [address] [place] [address] [phone] Connective Tissue 06/16/2018 [facility] Anti-Nuclear 0.2 U [address] [place] [address] [phone] Cyclic Citrullinated Peptide <15.6 U 9 Interpretation See Comment 10 Laboratory test 06/16/2018 [facility] Fungus Culture SEE RESULT [address] [place] [place] [address] [phone] Semen Analysis 03/20/2017 [facility] Post Vasectomy Yes N Post Vasectomy [address] [place] [address] [phone] Semen Volume 2.5 mL N 1.5-5.0 Post Vasectomy Sperm Presence Absent N Absent Laboratory test 12/07/2016 [facility] Surgical SEE RESULT [address] [place] [address] [phone] CBC Auto Diff 04/18/2016 [facility] White Blood 7.1 10^3/uL N 3.5-[address] [place] [address]8 [place] [address] [phone] Red Blood Count 5.11 10^6/uL N 4.0-5.4 [...] Red Blood Cells % 0.3 N Laboratory 04/18/2016 [facility] TSH (Thyroid Stim 0.65 N 0.34 -5.60 [address] Horm) ?IU/[place] [address] [phone] Lipid Profile 04/18/2016 [facility] Triglycerides 164 mg/dL N 14 (Trig/Chol/HDL [address] ) [place] [address] [phone] Cholesterol 207 mg/dL N 15 HDL Cholesterol 46.1 mg/dL N 16 LDL Cholesterol 128 mg/dL N 17 Laboratory test 04/18/2016 [facility] Magnesium 2.1 mg/dL N 1.9-2.7 18 finding [address] [place] [address] [phone] Vitamin B12 And 04/18/2016 [facility] Vitamin B12 318 pg/mL N 180-914 19 Folate Serum [address] [place] [address] [phone] Folic Acid (Folate) 5.49 ng/mL N >3.99 20 Comp Metabolic Panel 04/18/2016 [facility] Sodium 138 mmol/L N 133-145 [address] [place] [address] [phone] Potassium 4.6 mmol/L N 3.5-5.0 Chloride 103 [...] 91.2 N >60 Egfr 117.3 N >60 21 Lipid Panel - 04/18/2016 [facility] Creatine 100 U/L N 10-223 22 J[facility] [address] [facility] Kinase(CK) [place] [address] [phone] 1 Please check labs this week 2 [...] 5 Kidney failure <15 (or dialysis) 4 REFERENCE VALUE Not Applicable 5 RESULT: HLA-B27 antigen was not detected. ADDITIONAL INFORMATION Method: Flow Cytometry Performing Laboratory CLIA# [id number] Test Performed by: [place] [address] 6 Because ethnic data is not always readily [...] 15-29 5 Kidney failure <15 (or dialysis) 7 SEE RESULT BELOW Name: LEXA KOLB : [address]: Xander Serra MD Acct: [id number] Unit: [id number] AGE: 48 Location: [facility] Re06/16/18 SEX: M Status: REG REF SPEC: [id number] YARIEL: 06/16/18-[address]: Xander Serra MD REQ: [id number] RECD: 06/16/18 STATUS: RES _ SOURCE: TOENAIL SPDESC: ORDERED: Fungal Cult Darnell COMMENTS: [id number] Please check today Procedure Result Reported Site Fungal Cult Skin/Hair/Nails Preliminary 07/07/18- 1319 ML Organism 1 TRICHOSPORON MUCOIDES * - [facility] . END OF REPORT DEPARTMENT OF PATHOLOGY, [address] [place] [address] Gabriel Drew M.D. Director [facility] # [id number] 8 REFERENCE VALUE <=1.0 (Negative) 9 REFERENCE VALUE <20.0 (Negative) 10 Tests for antibodies to dsDNA and DAVION antigens are not performed automatically unless the ROCÍO result is > or= 3.0 U. Studies performed at [facility] indicate that positive ROCÍO results <3.0 U are rarely accompanied by positive second order tests. Test Performed by: [facility] - [address] [address] 11 SEE RESULT BELOW Name: LEXA KOLB : [address]: Xander Serra MD Acct: [id number] Unit: [id number] AGE: 48 Location: [facility] Re06/16/18 SEX: M Status: REG REF SPEC: [id number] YARIEL: 06/16/18-[address] [facility] [address]: Xander Serra MD REQ: [id number] RECD: 06/16/18 STATUS: COMP _ SOURCE: TOENAIL SPDESC: ORDERED: Fungal Cult Darnell COMMENTS: [id number] Please check today Procedure Result Reported Site Fungal Cult Skin/Hair/Nails Final 07/14/18- 1100 ML Organism 1 TRICHOSPORCLEMENTE FLETCHEROIDES * ML - Main Lab . END OF REPORT DEPARTMENT OF PATHOLOGY, [address] [place] [address] Gabriel Drew M.D. Director [facility] # [id number] 12 SEE RESULT BELOW Name: LEXA KOLB Armando : [address]: Alexei Buckley MD Acct: [id number] Unit: [id number] AGE: 46 Location: [facility] Re12/07/16 SEX: M Status: REG REF SPEC: [id number] YARIEL: 12/07/16-[address]: Alexei Buckley MD REQ: [id number] RECD: 12/07/16-1153 STATUS: SOUT _ ORDERED: LEVEL II/2 COMMENTS: [id number] FINAL DIAGNOSIS 1. Vas deferens, right, vasectomy: [...] tissue fragment. Sectioning reveals a pinpoint lumen, loss prevention representative sections are submitted in one cassette. 2. The specimen is received in formalin labeled, Left Vas Deferens, and consists of a 3.0 x 0.3 cm espinoza-pink tubular soft tissue fragment. Sectioning reveals a pinpoint lumen, loss prevention representative sections are submitted in one cassette. Signed (signature on file) Gabriel Drew MD 1326 END OF REPORT * ML=Testing performed at Main Lab DEPARTMENT OF PATHOLOGY, [address] [place] [address] Gabriel Drew M[address]. Director [facility] # [id number] 13 FASTING 14 Desirable <150 Borderline high 150-199 High 200-499 Very High >500 15 Desirable <200 Borderline high 200-239 High >239 16 Low <40 Desirable: 40-60 High: >60 17 Desirable: <100 mg/dL Near Optimal: 100-129 mg/dL Borderline High: 130-159 mg/dL High: 160-189 mg/dL Very High: >189 mg/dL 18 FASTING 19 Normal Range 180 to 914 Indeterminate Range 145 to 180 Deficient Range <145 20 FASTING 21 Because ethnic data is not always readily [...] 15-29 5 Kidney failure <15 (or dialysis) 22 FASTING Procedures Date Code Description Status 10/30/2018 Inject/Drain Joint/Bursa Major W/O US Completed 10/14/2018 10990 EKG Tracing & Interpretation Completed 09/12/201835000 Inject/Drain Joint/Bursa Major W/O US Completed 03/14/2017 38942 EKG Tracing & Interpretation Completed 12/07/2016 34095 Vasectomy Including Post-Op Semen Exam Completed 04/18/2016 59334 ECHO Stress Test Incl Perf Contiuous ekg Monitoring W/Phys Completed Superv 03/08/2016 13704 Holter Monitor Review (24 hr)dr review & interp only Completed 03/07/2016 82009 ECG Monitor/Recording W/Visual Superimposition Scanning Completed 2016 55049 ECHO Transthoracic, Real-Time 2D With Doppler And Color Completed Flow 02/16/2016 98504 EKG Tracing & Interpretation Completed 12/01/2007 06179 Holter Monitor Interpretation Completed 12/01/2007 46616 Holter Monitor Interpretation Completed Encounters Type Date Location Provider Dx Diagnosis Office Visit 10/14/2018 [facility] Jitendra Da Silva49.3 Ventricular premature 11:40a Of [place] [facility] Surendra Pink depolarization R00.2 Palpitations Z01.810 Encounter for preprocedural cardiovascular examination Office Visit 09/29/2018 Rheumatology Xander L40.50 Arthropathic 10:40a [facility] [place] Serra M.D. 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 tear/ruptr of r shoulder, not trauma M75.42 Impingement syndrome of left shoulder Office Visit 09/12/2018 9:00a [facility] Mattie Dupree M25.552 Pain in left [facility] M.DMildred hip M16.12 Unilateral primary osteoarthritis, left hip M25.511 Pain in right shoulder M75.121 Complete rotatr-cuff tear/ruptr of r shoulder, not trauma Office Visit 07/29/2018 Rheumat[facility] Xander L40.50 Arthropathic 8:40a [facility] [place] Serra M.D. psoriasis, unspecified M25.511 Pain in right shoulder Z79.899 Other fdc (current) drug therapy L40.0 Psoriasis vulgaris Z23 [...] bursitis, left knee Office Visit 03/06/2018 9:40a [facility] Dermatology Redd Gillis MD L40.0 Psoriasis [...] dysplasia, left hip Office Visit 03/14/2017 1:00p [facility] Jitendra Parry R00.2 Palpitations Surendra Pink R94.31 Abnormal electrocardiogram [ECG] [EKG] Office Visit 10/16/2016 Surgical Alexei Connelly Z30.09 Encounter for oth 11:00a Associates Nba Buckley M.D. general coun and [facility] advice on contraception Office Visit 02/16/2016 [place] Jitendra Parry R00.2 Palpitations 10:00a Cardiology Surendra Pink R07.9 Chest pain, unspecified R94.31 Abnormal electrocardiogram [ECG] [EKG] Plan of Treatment Future Appointment(s):11/04/2018 3:15 pm - [place] [facility] Schedule at [facility]11/06/2018 8:30 am - Nurse Visit cc at [facility]11/05/2018 10 :00 am - Nurse Visit cc at [facility]11/05/2018 11:00 am - Mattie Dupree M.D. at [facility]01/12/2019 11:00 am - Xandre Serra M.D. at [facility]11/27/2018 12:30 pm - Mattie Dupree M.D. at [facility]10/30/2018 - Nuha Walker, MDM75.42 Impingement syndrome of left shoulderFollow up:Follow up: after hip surgery or earlier for injection in zgnxaW43.121 Complete rotator cuff tear or rupture of right shoulder, notFollow up:Follow up:M77.12 Lateral epicondylitis, left elbow
[2018-11-27] MEDS ORDERED: Famotidine IV* 10 MG/ML 2 ML (20 mg) ONE (09:54)
[2018-11-27] MEDS ORDERED: Dexamethasone IV* 4 MG/ML 1 ML (4 MG) ONE (09:54)
[2018-11-27] MEDS ORDERED: ceFAZolin 2 GM PREMIX in ORs 2 GM/50 ML BAG IVPB ONE (10:39)
[2018-11-27] MEDS ORDERED: Midazolam* 1 MG/ML 2 ML VIAL (2 MG) ONE ×2 (12:17→12:18)
[2018-11-27] MEDS ORDERED: fentaNYL* 50 MCG/ML 2 ML VIAL (100 MCG VIAL) ONE (12:17)
[2018-11-27] MEDS ORDERED: Phenylephrine INJ* 10 MG/ML 1 ML VIAL (10 MG) ONE (12:18)
[2018-11-27] MEDS ORDERED: Propofol* 500 MG/50 ML BTL ONE (12:18)
[2018-11-27] MEDS ORDERED: Naloxone* 0.4 MG/ML 1 ML VIAL IV PRN (13:36)
[2018-11-27] MEDS ORDERED: HYDROmorphone INJ1* 1 MG/ML SYRINGE IV PRN (13:36)
[2018-11-27] MEDS ORDERED: DiMENhydriNATE IV* 50 MG/ML VIAL IV PUSH PRN (13:39)
[2018-11-27] MEDS ORDERED: Ketorolac INJ* 30 MG/ML 1 ML VIAL IV PRN (14:11)
[2018-11-27] MEDS ORDERED: Bupivacaine 0.5%* 50 ML VIAL ONE (14:44)
[2018-11-27] MEDS ORDERED: Acetaminophen TAB* 325 MG PO PRN (15:07)
[2018-11-27] MEDS ORDERED: diPHENhydraMINE IV* 50 MG/ML 1 ml VIAL (BENADRYL) IV PRN (15:07)
[2018-11-27] MEDS ORDERED: Bisacodyl SUPP* 10 MG SUPP PR PRN (15:07)
[2018-11-27] MEDS ORDERED: Morphine VIAL* 4 MG/ML VIAL (1 ml vial) IV PRN (15:07)
[2018-11-27] MEDS ORDERED: Ondansetron INJ* 2 MG/ML VIAL IV PRN (15:07)
[2018-11-27] MEDS ORDERED: Cyclobenzaprine TAB* 10 MG PO PRN (15:07)
[2018-11-27] MEDS ORDERED: Magnesium Hydroxide LIQ* 30 ML UDC PO PRN (15:07)
[2018-11-27] MEDS ORDERED: Ketorolac INJ* 30 MG/ML 1 ML VIAL ONE (15:35)
[2018-11-27] MEDS: oxyCODONE/Acetamin 5/325 MG* TAB PO PRN ×2 (15:56→21:43)
[2018-11-27] MEDS ORDERED: oxyCODONE/Acetamin 5/325 MG* TAB ONE (15:56)
[2018-11-27] MEDS ORDERED: Lactated Ringers 1000 ML Bag* 1,000 ML IV SCH (16:00)
[2018-11-27] MEDS ORDERED: Warfarin TAB(*) 6 MG PO ONE (17:00)
--- NOTE | 2018-11-27 17:02 | PN ---
Progress Note - Progress Note Date of Service: 11/27/18 SOAP: Subjective: [Pt was seen in pacu. States that he is doing well. No complaints at this time ] Objective: [Dressing is c/d/i. +df/pf] Vital Signs Temp 97.3 F 11/27/18 14:57 Pulse 47 11/27/18 15:46 Resp 16 11/27/18 15:56 BP 118/78 11/27/18 15:46 Pulse Ox 98 11/27/18 15:46 Intake & Output 11/26/18 11/27/18 11/27/18 18:59 06:59 18:59 Intake Total 1500 Output Total 500 Balance 1000 Weight 187 lb Intake: IV Fluids 1500 LR 1500 Output: Higuera 500 Assessment: [S/P LTHA ] Plan: [- continue with post op abx - oxycodone 5mg 1 - 2 tabs q 4 - 6 hours prn - PT/OT to start tomorrow morning.
[2018-11-27] MEDS: oxyCODONE TAB* 5 MG TAB PO PRN (18:18)
[2018-11-27] MEDS: ceFAZolin 1 GM ADVAN(*) 1 GM in NS 0.9% 50 ML* 50 ML IVPB SCH (20:09)
[2018-11-27] MEDS: Magnesium Hydroxide LIQ* 30 ML UDC PO SCH (21:43)
[2018-11-27] MEDS: Docusate CAP* 100 MG PO SCH (21:43)
[2018-11-28] MEDS: oxyCODONE/Acetamin 5/325 MG* TAB PO PRN ×3 (03:39→13:00)
[2018-11-28] MEDS: ceFAZolin 1 GM ADVAN(*) 1 GM in NS 0.9% 50 ML* 50 ML IVPB SCH ×2 (03:39→13:01)
[2018-11-28 05:40] LABS: Hematocrit 35 % (42-52); Hemoglobin 12.4 g/dl (14.0-18.0); Mean Platelet Volume 7.8 fL (7.4-10.4); Platelet Count 163 10^3/ul (150-450)
[2018-11-28 05:44] LABS: INR 1.02 (0.77-1.02)
[2018-11-28 06:02] LABS: BUN/Creatinine Ratio 16.7 (8-20); Calcium 8.6 mg/dL (8.6-10.3); EGFR African American 127.5 (>60); EGFR Non-African American 105.4 (>60); Potassium 4.1 mmol/L (3.5-5.0)
[2018-11-28] MEDS: oxyCODONE TAB* 5 MG TAB PO PRN ×2 (06:24→11:07)
[2018-11-28] MEDS: Docusate CAP* 100 MG PO SCH (08:16)
[2018-11-28] MEDS: Magnesium Hydroxide LIQ* 30 ML UDC PO SCH (08:17)
[2018-11-28] MEDS ORDERED: Citalopram TAB* 10 MG PO SCH (09:00)
[2018-11-28] MEDS ORDERED: Enoxaparin(*) 40 MG/0.4 ML SYR SUBCUT SCH (09:00)
[2018-11-28 14:27] VITALS: BP 114/62
--- NOTE | 2018-11-28 20:17 | OP ---
OPERATIVE REPORT: DATE OF OPERATION: 11/27/18 DATE OF : [birth year] SURGEON: Mattie Dupree MD PROCESS WORKER: TORI Patel Mr. Dee did help throughout the procedure with preparation of the leg, wound retraction, manipulat ion of the hip, and wound closure. ANESTHESIOLOGIST: Dr. Canales. ANESTHESIA: Spinal. PRE-OP DIAGNOSIS: Severe end-stage degenerative osteoarthritis of the left hip joint. POST-OP DIAGNOSIS: Severe end-stage degenerative osteoarthritis of the left hip joint. OPERATIVE PROCEDURE: Left total hip arthroplasty. COMPLICATIONS: None. ESTIMATED BLOOD LOSS: 250 cc. SPECIMENS: Femoral head and acetabular reaming sent to Pathology. HARDWARE USED: This is uncemented total hip arthroplasty hardware from [employer]. For the cup, a 54E T ritanium cluster hole shell. A single 16-mm screw was used. For the insert, a Trident X3 10-degree p olyethylene insert 36E. For the stem, an Accolade II femoral stem, size 5 with a 132-degree neck. F or the head, a Biolox delta ceramic V40 femoral head 36 +0. BRIEF HISTORY/INDICATIONS: Mr. Kolb is a 48-year-old gentleman with years of increasingly severe lef t hip pain. He failed conservative treatment with anti- inflammatories, physical therapy, and radiog raphs showed advanced arthritis. Due to continued pain and decreased quality of life, the patient el ected to undergo left total hip arthroplasty. Informed consent was obtained from the patient. He un derstood the risks of surgery included, but were not limited to bleeding, infection, damage to nearby structures, continued pain, need for further surgery, intraoperative fracture, nerve palsy, hardware failure or loosening, dislocation, leg length discrepancy, stroke, heart attack, blood clot, and carlos th. He wished to proceed. INTRAOPERATIVE FINDINGS: Intraoperatively, the patient was noted to have end-stage arthritis with co mplete loss of cartilage along the femoral head and acetabulum. There was extensive osteophyte format ion. DESCRIPTION OF PROCEDURE: Mr. Kolb is a 48-year-old gentleman who was identified in the preanesthesi a unit. His left lower extremity was marked as the correct operative side. Informed consent was sig monika and placed in the chart. The patient was taken to the operating room and placed under spinal ane sthesia. A Higuera catheter was placed. The patient was placed in the right lateral decubitus positio n on the pegboard. All bony prominences were well padded. Left lower extremity was prepped and drap ed in the usual sterile fashion. Preop time-out was made to correctly identify the patient's side an d site. Appropriate perioperative antibiotics were given within 1 hour of incision. A standard post erior hip incision was made with a 10 blade and carried down to the lateral fascial layer. Lateral fa scial layer was incised in line with the skin incision and a Charnley retractor was placed. The piriformis and conjoint tendons were elevated off the posterolateral femur using electrocautery a nd tagged with #5 Ethibond. Next, the electrocautery was used to make a standard posterolateral caps ular flap and this was also tagged with #5 Ethibond. The hip was carefully dislocated. Lesser troch to center of the femoral head measured 55 mm. The oscillating saw was used to make the appropriate femoral neck cut. Femoral head was carefully removed. After appropriate placement of retractors, the acetabulum was easily visualized. A long-handled knif e was used to sharply remove any remaining labrum from the acetabular rim. The acetabulum was sequen tially reamed up to a size 53. 53 reamer obtained a bleeding subchondral bleeding bone bed. 53 tria l had excellent fit and stability. Final implant chosen was a Tritanium cluster hole shell 54E. Thi s was impacted into the acetabulum without difficulty. The cut was stable with appropriate anteversi on and abduction angle. A single screw was placed in the superoposterior quadrant for extra stabilit y. A Trident X3 10-degree polyethylene insert 36E was chosen as final insert and impacted into the a cetabulum. The insert was stable to testing. Next, attention was turned to the femoral canal. A canal finder was used to enter the proximal femur . The femoral canal was sequentially broached up to a size 5. Size 5 broach had excellent fit and st ability with appropriate anteversion. A 132 neck trial with a 36 +0 head trial was chosen. Lesser t roch to center of the femoral head measured 57 mm. The hip was reduced and taken through a range of motion. The hip was stable in all positions. There was good soft tissue tension and appropriate leg lengths. The hip was dislocated. All trials were removed. Final implant chosen was an Accolade II, size 5 wi th a 132-degree neck angle. This was impacted into the femoral canal without difficulty. Final head was chosen was a Biolox delta ceramic V40 femoral head 36 +0. This was impacted down to the femoral neck. Final lesser troch to center of the femoral head measurement was 57 mm. The hip was reduced and taken through a range of motion. The hip was stable in all positions. There was good soft tissu e tension and appropriate leg lengths. The hip was copiously irrigated with sterile saline. Previously tagged capsule and tendons were reap proximated to the posterolateral femur through 2 trochanteric drill holes. The lateral fascial layer was closed using interrupted #1 Vicryls. The rest of the incision was closed in a layered fashion us ing 0 and 2-0 Vicryls. Skin was closed using running 3-0 Monocryl and Dermabond. Sterile Adaptic, 4x 4s, and paper tape were used to cover the incision. The patient's anesthesia was reversed without di fficulty. He was taken to the PACU in stable condition. Intended weightbearing will be weightbearing as tolerated. Intended DVT prophylaxis will be Coumadin with a Lovenox bridge. [id number]/[facility] #: [id number]
--- NOTE | 2018-11-28 20:17 | DS ---
DISCHARGE SUMMARY: DATE OF ADMISSION: 11/27/18 DATE OF DISCHARGE: 11/28/18 ATTENDING PHYSICIAN: Dr. Mattie Dupree.* (DICTATED BY TORI CORDOVA) ADMISSION DIAGNOSIS: End-stage osteoarthritis, left hip. DISCHARGE DIAGNOSIS: End-stage osteoarthritis, left hip. SURGERY PERFORMED: Left total hip arthroplasty. HOSPITAL COURSE: The patient is a 48-year-old male who had progressive pain and disability from end-stage degenerative arthritis of his left hip joint. The patient previously had a right total hip arthroplasty several years ago and has done well with that. He failed conservative management with physical therapy, anti- inflammatories, intra-articular cortisone injections and elected to proceed with left total hip arthroplasty. He was taken to the operating room under the care of Dr. Mattie Dupree on the date of 11/27/18 for the aforementioned procedure. He tolerated the procedure well and left the operating room in stable condition. Postoperatively, he did very well with his physical therapy and occupational therapy goals, bearing weight as tolerated on the left lower extremity. His pain was under excellent control. He had no postoperative complications and was found to be medically and orthopedically stable for discharge to home on the date of 11/28/18. CONDITION ON DISCHARGE: The patient is alert and oriented x3. He denies shortness of breath, chest pain, or palpitations. Examination of his left hip incision is benign without drainage or evidence of infection. His calf is soft and nontender. His active dorsiflexion and plantarflexion of the left ankle without pain. His vital signs are stable. Temperature 97.8, pulse 50, respiratory rate 18, O2 sats 99% on room air, blood pressure 114/73. PLAN: The patient will be discharged to home. He will participate in outpatient physical therapy. He will maintain hip precautions as learned in physical therapy. He will use Lovenox 40 mg subcuticular once daily for DVT prophylaxis as Eliquis anticoagulant was not covered by his insurance carrier. He was provided with a prescription of oxycodone 5 mg 1 to 2 tablets p.o. q.4 hours p.r.n. pain, #70, 0 refills. He will follow up in the office as previously scheduled in roughly 10 to [address] Dupree. All questions were answered. TORI CORDOVA [id number]/[facility] #: [id number] ESTELLA
== END 2018-11-28 14:26 | disposition home or self-care (01) | DRG 301 ==
LOC: AA 09:11 → SSU 15:07
PROVIDERS: ADMIT Orthopaedic Surgery Adult Reconstructive Orthopaedic Surgery; ATTEND Orthopaedic Surgery Adult Reconstructive Orthopaedic Surgery
PROC: 0SRB04A Replacement of Left Hip Joint with Ceramic on Polyethylene Synthetic Substitute, Uncemented, Open Approach (ICD-10-PCS; principal; 2018-11-27 11:45)
DX: M16.12 Unilateral primary osteoarthritis, left hip (principal); F32.9 Major depressive disorder, single episode, unspecified; L40.50 Arthropathic psoriasis, unspecified; F41.9 Anxiety disorder, unspecified; M25.752 Osteophyte, left hip; Z96.641 Presence of right artificial hip joint; Z83.3 Family history of diabetes mellitus; Z82.49 Family history of ischemic heart disease and other diseases of the circulatory system; Z72.89 Other problems related to lifestyle; Q79.8 Other congenital malformations of musculoskeletal system; Z87.891 Personal history of nicotine dependence; Z79.01 Long term (current) use of anticoagulants
CPT/HCPCS: 36415; 72170; 80048; 85014; 85018; 85049; 85610; 88304; 88311; A9270-GY; C1713; C1776; J0690; J1100; J1650; J1885; J2250; J2704; J3010

== ENCOUNTER → 2019-09-09 09:59 | Day surgery (SDC) | payer OTHER ==
[~2019-09-09 09:59] MED LIST changes: -Buffered Lidocaine 0.9% SYRIN* 5 ML/SYR SYRINGE INTRADERM ONE; +Buffered Lidocaine 1% SYRIN* 1 ML/SYRINGE INTRADERM ONE; +Bupivacaine 0.25% SDV PF* 10 ML VIAL INJ ONE; +Chloroprocaine 2%* 20 ML VIAL ONE; +Dexamethasone IV* 4 MG/ML 1 ML (4 MG) ONE; +Famotidine IV* 10 MG/ML 2 ML (20 mg) ONE; +HYDROcodone/ACETAMIN 5-325 MG* 1 TAB PO PRN; +Ibuprofen TAB* 400 MG PO PRN; +Midazolam* 1 MG/ML 5 ML VIAL (5 MG) ONE; +Naloxone* 0.4 MG/ML 1 ML VIAL IV PRN; +Ondansetron INJ* 2 MG/ML VIAL IV PRN; +ceFAZolin 2 GM PREMIX in ORs 2 GM/50 ML BAG ONE; +fentaNYL* 50 MCG/ML 2 ML VIAL (100 MCG VIAL) IV PRN; +fentaNYL* 50 MCG/ML 2 ML VIAL (100 MCG VIAL) ONE; +oxyCODONE/Acetamin 5/325 MG* TAB PO PRN
--- NOTE | 2019-09-09 12:31 | BRIEFOPN ---
Brief Operative/Procedure Note - Operation Details Pre-Op Diagnosis: Internal hemorrhoids Post-Op Diagnosis: same as above Procedures: Internal hemorrhoid banding Surgeon(s)/Proceduralists: Dr. Aburto; Assist: LAURA Robertson Anesthesia: Spinal; Dr. Hess Estimated Blood Loss: <5cc; IV fluids: 800ml crystalloid Findings: as above Specimen(s)/Culture(s) Description: none Complications: none
[2019-09-09 12:45] VITALS: BP 92/60
--- NOTE | 2019-09-09 22:20 | OP ---
CC: Primary care doctor, Kati Cheng NP * DATE OF OPERATION: 09/09/19 - [facility] DATE OF : 66 SURGEON: Yinka Aburto MD [employer] SAMPLER: TORI Monk student. PRE-OP DIAGNOSIS: Internal hemorrhoids. POST-OP DIAGNOSIS: Internal hemorrhoids. OPERATIVE PROCEDURE: Exam under anesthesia and hemorrhoidal banding x3. BLOOD LOSS: Minimal. FLUIDS: 800 cc of crystalloid fluid given. SPECIMEN: None. COMPLICATIONS: None. DESCRIPTION OF PROCEDURE: Mr. Kolb was identified in the preoperative area. Consent was signed. Discussed the case with him and his family members again. The patient was then taken to the operating room, spinal anesthesia was delivered, and the patient was placed on the operating table in a prone position. Buttocks were taped apart and the perianal area was prepped thoroughly. The patient was draped and a time-out was performed. Dilation of the anus was then carried out up to 2 fingers. An anal retractor was placed and there was significant hemorrhoidal tissue mostly anteriorly. This did not show any evidence of recent bleed. These were then banded, 2 on the anterior and 1 on the left posterior. The right anterior did come close to the dentate line, but I felt that this was seated well within the hemorrhoidal tissue and I kept it in place. We then injected local at the banding site mostly on the right side and then woke the patient up and transferred him back to the [facility]. [id number]/CPS #: [id number] MTDD
== END | disposition home or self-care (01) ==
LOC: OR 09:59
PROVIDERS: ATTEND Surgery
DX: K64.1 Second degree hemorrhoids (principal); K62.5 Hemorrhage of anus and rectum; I49.3 Ventricular premature depolarization; F41.8 Other specified anxiety disorders; Z87.891 Personal history of nicotine dependence
CPT/HCPCS: J0690; J1100; J2250; J2400; J3010; J3490